=== PATIENT | female | born 1980 | race African-American/Black ===

== ENCOUNTER → 2020-09-14 | Emergency (ER) | payer SELFPAY ==
[~2020-09-14] VITALS: Ht 170.2 cm; Wt 68.0 kg
[~2020-09-14] MED LIST: TYLENOL EXTRA500 MG ORAL
[2020-09-14 19:05] VITALS: BP 137/79
== END | disposition home or self-care (01) ==
LOC: EMR 19:25
DX: R22.41 Localized swelling, mass and lump, right lower limb (principal); G43.909 Migraine, unspecified, not intractable, without status migrainosus
CPT/HCPCS: 99281

== ENCOUNTER 2020-09-23 14:57 | Emergency (ER) | payer SELFPAY ==
--- NOTE | 2020-09-23 15:00 | NUR ---
ED Nurse Note: Patient left without being triaged.
--- NOTE | 2020-09-23 21:29 | Emergency Room Report ---
History of Present Illness General Chief Complaint: To Be Triaged Present Illness HPI This patient left prior to evaluation by medical provider. Allergies: Coded Allergies: Chicken Meat (Verified Allergy, Unknown, 09/14/20) COVID-19 Screening Contact w/high risk pt: No Experienced COVID-19 symptoms?: No Nursing Documentation-PMH Hx Cardiac Problems: No - MIGRAINES Medical Decision Making PA Attestation Dr. Gurrola is my supervising Physician whom patient management has been discussed with. Diagnostic Impression: Primary Impression: LWBS ER Course This patient left prior to evaluation by medical provider. Disposition: LEFT W/OUT BEING SEEN Condition: Unknown Referrals: NOT CHOSEN IPA/,REFERRING (PCP) Diana Hebert Sep 23, 2020 21:29
[2020-09-24] MEDS ORDERED: TYLENOL EXTRA500 MG ORAL (16:12)
== END 2020-09-23 15:35 | disposition left against medical advice (07) ==
LOC: EMR 15:35
DX: Z53.21 Procedure and treatment not carried out due to patient leaving prior to being seen by health care provider (principal)

== ENCOUNTER 2020-09-24 15:58 | Emergency (ER) | payer SELFPAY ==
[~2020-09-24] VITALS: Ht 165.1 cm; Wt 65.8 kg
[2020-09-24 16:06] VITALS: BP 135/76
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
[2020-09-24] MEDS ORDERED: TYLENOL EXTRA500 MG ORAL (16:12)
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
--- NOTE | 2020-09-24 16:21 | NUR ---
ER DISCHARGE NOTE: Patient is cleared to be discharged per ERMD, pt is aox4, on room air, with stable vital signs. pt was given dc and prescription instructions, pt was able to verbalize understanding. pt is able to ambulate with steady gait. pt took all belongings.
== END 2020-09-24 16:20 | disposition home or self-care (01) ==
LOC: EMR 16:09
DX: R51.9 Headache, unspecified (principal); S09.90XD Unspecified injury of head, subsequent encounter; W22.8XXD Striking against or struck by other objects, subsequent encounter; Z91.018 Allergy to other foods
CPT/HCPCS: 99282